=== PATIENT | female | born 1995 | race Caucasian/White ===

== ENCOUNTER 2017-03-15 18:08 | Emergency (ER) | payer OTHER ==
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
[2017-03-15 21:39] LABS: Basophils % (Auto) 0.4 % (0.0-1.8); Eosinophils % (Auto) 0.3 % (0.0-4.3); Mean Corpuscular HGB Conc 30 % (30-34); Platelet Count 360 K/mm3 (140-440); Red Blood Count 4.63 M/mm3 (3.65-5.03); Red Cell Distribution Width 18.3 % (13.2-15.2); White Blood Count 14.1 K/mm3 (4.5-11.0)
[2017-03-15 21:43] LABS: Hematocrit 28.7 % (30.3-42.9); Hemoglobin 8.5 gm/dl (10.1-14.3); Mean Corpuscular Hemoglobin 18 pg (28-32); Mean Corpuscular Volume 62 fl (79-97)
[2017-03-15 21:50] LABS: INR 1.09 (0.87-1.13); Partial Thromboplastin Time 23.5 Sec. (24.2-36.6)
[2017-03-15 22:01] LABS: Alanine Aminotransferase 43 units/L (7-56); Albumin 4.4 g/dL (3.9-5); Albumin/Globulin Ratio 1.3 %; Alkaline Phosphatase 113 units/L (35-129); Anion Gap 19 mmol/L; Blood Urea Nitrogen 8 mg/dL (7-17); Calcium 9.1 mg/dL (8.4-10.2); Carbon Dioxide 22 mmol/L (22-30); Chloride 103.4 mmol/L (98-107); Glucose 100 mg/dL (65-100); Potassium 3.9 mmol/L (3.6-5.0); Sodium 140 mmol/L (137-145); Total Protein 7.8 g/dL (6.3-8.2)
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
--- NOTE | 2017-03-16 00:48 | Ultrasound Report ---
FINAL REPORT EXAM: US PELVIC COMPLETE HISTORY: pelvic pain TECHNIQUE: Real-time sonography was performed of the pelvis transabdominally. Images are submitted for interpretation. PRIORS: None. FINDINGS: The uterus appears normal measuring 7.0 x 4.0 x 4.1 cm the endometrial stripe appears normal measuring 8 mm. The adnexa were scanned. The ovaries are not seen. There are no abnormal fluid collections. IMPRESSION: Normal uterus. Ovaries not seen
--- NOTE | 2017-03-16 00:48 | Ultrasound Report ---
FINAL REPORT EXAM: US TRANSVAGINAL HISTORY: pelvic pain TECHNIQUE: Real-time sonography was performed of the pelvis endovaginally. Images are submitted for interpretation. PRIORS: None. FINDINGS: The uterus appears normal measuring 7.0 x 4.0 x 4.1 cm the endometrial stripe appears normal measuring 8 mm. The adnexa were scanned. The ovaries are not seen. There are no abnormal fluid collections. IMPRESSION: Normal uterus. Ovaries not seen
--- NOTE | 2017-03-16 00:53 | Ultrasound Report ---
FINAL REPORT EXAM: US ABDOMEN COMPLETE HISTORY: abd pain TECHNIQUE: Real-time sonography was performed of the abdomen. Images are submitted for interpretation. PRIORS: None. FINDINGS: The liver has a diffuse increased echogenicity consistent with fatty infiltration. The gallbladder appears normal. There is no evidence of biliary dilatation, the common bile duct measures 3 mm. The visualized pancreatic parenchyma appears normal. The visualized segments of the abdominal aorta and inferior vena cava appear normal. The spleen appears normal, measuring 10.7 x 3.8 x 4.4 cm in length. The kidneys appear normal in size, shape and echogenicity with the right kidney measuring 11.5 x 4.6 x 6.0 cm and the left measuring 13.3 x 4.9 x 4.9 cm. IMPRESSION: Diffuse fatty infiltration of the liver. Otherwise normal abdominal ultrasound.
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
[2017-03-16 01:33] LABS: Bilirubin,Urine NEG (Negative); Blood,Urine NEG (Negative); Ketones,Urine NEG (Negative); Leukocyte Esterase,Urine TR (Negative); Mucus,Urine 1+ /HPF; Nitrite,Urine NEG (Negative); Protein,Urine <15 mg/dL mg/dL (Negative); Urobilinogen,Urine < 2.0 mg/dL (<2.0)
[2017-03-16] MEDS ORDERED: FLEXERIL PO ONE (01:40)
[2017-03-16] MEDS ORDERED: TORADOL IM ONE (01:40)
[2017-03-16 03:11] VITALS: BP 132/69
== END 2017-03-16 02:00 | disposition home or self-care (01) ==
LOC: ED 18:08
DX: R10.2 Pelvic and perineal pain (principal); M54.5 Low back pain; V43.62XA Car passenger injured in collision with other type car in traffic accident, initial encounter; Y93.89 Activity, other specified; Y92.89 Other specified places as the place of occurrence of the external cause; Y99.8 Other external cause status
CPT/HCPCS: 36415; 70450; 76700; 76830; 76856; 80053; 81001; 84703; 85025; 85610; 85730; 96372; 99284; J1885